=== PATIENT | male | born 1975 | race Caucasian/White ===

== ENCOUNTER 2016-07-12 14:21 | Outpatient (RCR) | payer OTHER ==
--- OUTSIDE RECORDS SUMMARY | 2016-05-29 13:45 | XMS REPORT | Continuity of Care Document ---
Author Author [facility] Organization [facility] Address Unknown Phone Unavailable Care Team Providers Care Student Worker Name Role Phone NO, LOCAL PHYSICIAN PCP Unavailable Advance Directives Directive Response Recorded Date/Time Advance Directives No 08/22/15 4:51pm Organ Donor Yes 08/22/15 4:51pm Problems Active Problems Medical Problem Onset Date Status Leukocytosis Unknown Acute Mild concussion Unknown Acute Mild concussion Unknown Acute Pain, abdominal, nonspecific Unknown Acute Periorbital contusion of left eye Unknown Acute Sprain and strain of foot Unknown Acute Medications Current Home Medications Medication Dose Units Route Directions Days/Qty Instructions Start Date Alprazolam 1 Mg 112 07/28/15 Methylphenidate Hcl 10 Mg 84 07/28/15 Tramadol Hcl 50 Mg 50 Mg Oral Every 4HRS as needed for Pain 14 Past Home Medications Medication Directions Ordered Status Methylprednisolone 4 Mg/Dose-Pack Tab.ds.pk, 1 Packet Oral As Directed Discontinued Oxycodone Hcl/Acetaminophen 1 Each Tablet, 1 - 2 Each Oral Every 6 Hours as needed 11/06/10 Discontinued Trimethoprim/Sulfamethoxazole 1 Ea Tablet, 1 Ea Oral Twice A Day 08/22/12 Discontinued Mupirocin 22 Gm Tube, 0 Topical Three Times A Day 08/22/12 Discontinued Clindamycin Hcl 300 Mg Capsule, 1 Each Oral Four Times Daily 08/22/12 Discontinued Methylprednisolone 4 Mg/Dose-Pack Tab.ds.pk, 0 Oral As Directed 08/22/12 Discontinued [Xanax] , 07/06/14 Discontinued [Ritalin] , 07/06/14 Discontinued Hyoscyamine Sulfate 0.125 Mg Tab.subl, 0.25 Mg Sublingual Every 6 Hours as needed for Cramps 07/28/15 Discontinued Hydrocodone/Acetaminophen 1 Each Tablet, 08/22/15 Discontinued Social History Social History Problem Response Recorded Date/Time Alcohol Use Regular Use 08/22/2015 4:51pm Recreational Drug Use No 08/22/2015 4:51pm Hospital Discharge Instructions No hospital discharge instructions. Plan of Care No plan of care. Functional Status No functional status results. Allergies, Adverse Reactions, Alerts Allergen Type Severity Reaction Status Last Updated methylprednisolone sod succ Allergy Intermediate Weakness, nausea, dyspnea Active 08/23/12 Immunizations No immunization records. Vital Signs No known vital signs results. Results No known relevant diagnostic tests, laboratory data and/or discharge summary. Procedures No known history of procedures.
[~2016-07-12 14:21] MED LIST: ALPR1TAB7; CLIN300C3 PO; HYDR-3812; HYOS0.1283 SL; METH-288; METH4TAB PO; MPR22T TP; OXYC-12 PO; RITALIN; SULF1TAB38 PO; TRAM50TA2 PO; XANAX
== END 2016-08-09 09:30 | disposition home or self-care (01) ==
PROVIDERS: ATTEND Orthopaedic Surgery
DX: Z48.89 Encounter for other specified surgical aftercare (principal)

== ENCOUNTER → 2016-07-19 | Outpatient (CLI) | payer BC ==
[~2016-07-19] VITALS: Ht 170.2 cm; Wt 98.4 kg
[~2016-07-19] MED LIST changes: +FAMO-119 PO; +GADOBUTROL 7.5 MMOL/7.5 ML (GADAVIST) VIAL IV ONE; +IOHEXOL 300 MG/ML 30 ML (OMNIPAQUE 300) VIAL IV ONE; +LIDOCAINE 1% INJ 20 ML (XYLOCAINE) VIAL INJ ONE; +LIDOCAINE 1% INJ 20 ML (XYLOCAINE) VIAL ONE; +SUCR1TAB36 PO
--- OUTSIDE RECORDS SUMMARY | 2016-07-19 11:26 | XMS REPORT | Continuity of Care Document ---
Author Author [facility] Organization [facility] Address Unknown Phone Unavailable Care Team Providers Care Sports Anchor Name Role Phone NO, LOCAL PHYSICIAN PCP [...]
[2016-07-19 11:36] VITALS: BP 138/90
[2016-07-19 11:57] VITALS: BP 132/88
--- NOTE | 2016-07-19 13:28 | Diagnostic Imaging Report ---
PROCEDURE: MRI left joint upper extremity with contrast. TECHNIQUE: Multiplanar, multisequence contrast-enhanced MRI of the left upper extremity was accomplished. INDICATION: Shoulder pain. FINDINGS: The previous MRI left shoulder exam performed on 12/30/14 was conducted without intra-articular contrast. That study failed to show any definite abnormality of the glenoid labrum. On the T1 coronal images of this exam, however, there is now a 3.5 x 15.1 mm linear area of diminished signal extending through the fluid in the joint space. This area of diminished signal is interposed between the inferior margin of the glenoid and the medial aspect of the humeral head. This may represent a portion of the labrum which has been avulsed and slightly displaced from the inferior glenoid. It will be less likely that this is secondary to a partial avulsion of the inferior glenohumeral ligament. The axial images also show a small linear area of increased signal extending to the anterior margin of the labrum (image 11 of 23). This finding is not well visualized on the coronal series but is still suspicious for a small tear of the anterior labrum. No other labral tear is identified. The previous study also noted slightly increased signal along the bursal aspect of the supraspinatus tendon. That finding is again evident on this exam and does not seem to have changed significantly. This finding may be related to mild fraying of the bursal aspect of the rotator cuff. The supraspinatus muscle itself is not retracted or bunched. There is mild hypertrophy of the acromioclavicular joint but there does not appear to be any significant narrowing of the outlet for the supraspinatus muscle. The biceps tendon and the subscapularis tendon are intact. There is no evidence for an acute bony abnormality. IMPRESSION: 1. In the interval since the previous study, a band of altered signal has developed between the inferior margin of the glenoid and the medial neck of the humerus. Whether this is secondary to an avulsed portion of the labrum or to an injury to the inferior glenohumeral ligament is not certain. There is also a question of a small tear involving the anterior labrum. 2. There is still no evidence for a tear of the rotator cuff and the supraspinatus muscle is not retracted or bunched. 3. There is mild hypertrophy of the acromioclavicular joint but there is no narrowing of the outlet for the supraspinatus muscle. 4. There is no sign of an acute bony abnormality. Dictated by: Dictated on workstation # [id number]
--- NOTE | 2016-07-19 18:38 | Diagnostic Imaging Report ---
Left shoulder injection for MRI. INDICATION: Shoulder pain. Following aseptic preparation of skin and administration of local anesthesia, a 19-gauge needle was advanced into the glenohumeral space using fluoroscopic guidance. Approximately 15 cc of a sodium chloride, Omnipaque 300 and Gadavist solution was introduced. The patient tolerated the procedure well and was sent to the MRI suite in good condition. IMPRESSION: There has been successful injection of the glenohumeral joint on the left. MRI pending for further study. Dictated by: Dictated on workstation # [id number]
== END ==
LOC: RAD 11:23
PROVIDERS: ATTEND Orthopaedic Surgery
DX: S43.432A Superior glenoid labrum lesion of left shoulder, initial encounter (principal)
CPT/HCPCS: 23350; 73040; 73222

== ENCOUNTER 2016-08-14 17:40 | Emergency (ER) | payer BC, OTHER ==
[~2016-08-14] VITALS: Ht 167.6 cm; Wt 99.8 kg
[~2016-08-14 17:40] MED LIST changes: -FAMO-119 PO; -GADOBUTROL 7.5 MMOL/7.5 ML (GADAVIST) VIAL IV ONE; -IOHEXOL 300 MG/ML 30 ML (OMNIPAQUE 300) VIAL IV ONE; -LIDOCAINE 1% INJ 20 ML (XYLOCAINE) VIAL INJ ONE; -LIDOCAINE 1% INJ 20 ML (XYLOCAINE) VIAL ONE; -SUCR1TAB36 PO
[2016-08-14 18:09] LABS: BILIRUBIN,URINE NEGATIVE (NEGATIVE); KETONES,URINE NEGATIVE (NEGATIVE); LEUKOCYTE ESTERASE ,URINE 1+ (NEGATIVE); NITRITE,URINE NEGATIVE (NEGATIVE); PH,URINE 6 (5-9); PROTEIN,URINE NEGATIVE (NEGATIVE); UROBILINOGEN,URINE NORMAL (NORMAL)
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
[2016-08-14] MEDS ORDERED: ONDANSETRON 4 MG/2 ML (SDV) Z0FRAN IVP ONE (18:15)
[2016-08-14] MEDS ORDERED: fentaNYL INJECTION 100 MCG/2 ML AMP IVP ONE (18:15)
[2016-08-14] MEDS ORDERED: NS IV 1000 ML 1,000 ML IV SCH (18:15)
[2016-08-14 18:16] LABS: SQUAMOUS EPITHELIAL CELL,UR RARE /HPF; WBC,URINE 0-2 /HPF
[2016-08-14 18:28] LABS: BASOPHILS % (AUTO) 0 % (0-10); EOSINOPHILS # (AUTO) 0.2 10^3/uL (0.0-0.3); EOSINOPHILS % (AUTO) 1 % (0-10); LYMPHOCYTES # (AUTO) 4.4 X 10^3 (1.0-4.0); LYMPHOCYTES % (AUTO) 35 % (12-44); MEAN CORPUSCULAR HEMOGLOBIN 29 PG (25-34); MEAN CORPUSCULAR HGB CONC 35 G/DL (32-36); MEAN CORPUSCULAR VOLUME 84 FL (80-99); MEAN PLATELET VOLUME 9.5 FL (7.4-10.4); MONOCYTES # (AUTO) 0.9 X 10^3 (0.0-1.0); MONOCYTES % (AUTO) 7 % (0-12); NEUTROPHILS # (AUTO) 7.3 X 10^3 (1.8-7.8); NEUTROPHILS % (AUTO) 57 % (42-75); PLATELET COUNT 278 10^3/uL (130-400); RED BLOOD COUNT 5.19 10^6/uL (4.35-5.85); RED CELL DISTRIBUTION WIDTH 13.5 % (10.0-14.5); WHITE BLOOD COUNT 12.7 10^3/uL (4.3-11.0)
[2016-08-14] MEDS ORDERED: NS 100 ML (IVPB) BAG IV ONE (18:30)
[2016-08-14] MEDS ORDERED: IOHEXOL 350 MG/ML 100 ML (OMNIPAQUE 350) VIAL IV ONE (18:30)
[2016-08-14 18:50] LABS: ALANINE AMINOTRANSFERASE 24 U/L (0-55); ALBUMIN 4.2 G/DL (3.2-4.5); ANION GAP 10 MMOL/L (5-14); ASPARTATE AMINO TRANSFERASE 20 U/L (5-34); BILIRUBIN,TOTAL 0.6 MG/DL (0.1-1.0); BLOOD UREA NITROGEN 12 MG/DL (7-18); BUN/CREATININE RATIO 10; CALCIUM 8.8 MG/DL (8.5-10.1); CARBON DIOXIDE 22 MMOL/L (21-32); CHLORIDE 109 MMOL/L (98-107); CREATININE SERUM 1.18 MG/DL (0.60-1.30); GFR ESTIMATED > 60; GLUCOSE 94 MG/DL (70-105); LIPASE 35 U/L (8-78); POTASSIUM 3.9 MMOL/L (3.6-5.0); SODIUM 141 MMOL/L (135-145); TOTAL PROTEIN 6.8 G/DL (6.4-8.2)
--- NOTE | 2016-08-14 19:07 | Diagnostic Imaging Report ---
PROCEDURE: CT abdomen and pelvis with contrast. TECHNIQUE: Multiple contiguous axial images were obtained through the abdomen and pelvis after administration of intravenous contrast. INDICATION: Abdominal pain, nausea, and vomiting, worsening in severity. Compared 07/28/2015. FINDINGS: Hyperenhancing nodule seen in the dynamic phase posterior sector right hepatic lobe inferiorly unchanged from prior, likely flash filling of hemangioma to 11 mm. The liver appeared otherwise normal. There is no biliary ductal dilatation. The gallbladder appeared normal. The spleen within normal limits of size. A subtle nodule along its lateral cortex superiorly slightly bulging the contour at 1.7 cm unchanged. The adrenals negative. The pancreas unremarkable. There is no appendicitis or diverticulitis. There is no bowel, biliary or urinary tract obstruction. The prostate, seminal vesicles, and urinary bladder unremarkable. There is no ascites, abscess, hematoma or other fluid collection. There is no focal inflammatory process. The osseous structures in the lung bases nonacute. IMPRESSION: Likely flash filling hemangioma, right hepatic lobe stable. Indeterminate mass spleen upper pole laterally probably splenic hemangioma also unchanged. No new lesion or adverse development. No inflammatory process, obstructive phenomena or acute appearing abdominopelvic abnormalities. Dictated by: Dictated on workstation # [id number]
[2016-08-14] MEDS ORDERED: SUCR1TAB36 PO (19:21)
[2016-08-14] MEDS ORDERED: FAMO-119 PO (19:21)
[2016-08-14 19:28] VITALS: BP 128/85
[2016-08-14] MEDS ORDERED: FAMOTIDINE 20 MG (PEPCID) TABLET PO ONE (19:30)
--- OUTSIDE RECORDS SUMMARY | 2016-09-17 06:37 | XMS REPORT ---
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
--- OUTSIDE RECORDS SUMMARY | 2016-09-17 06:37 | XMS REPORT ---
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
--- OUTSIDE RECORDS SUMMARY | 2016-09-17 06:37 | XMS REPORT ---
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
--- OUTSIDE RECORDS SUMMARY | 2016-09-17 06:37 | XMS REPORT ---
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 Problem Posttraumatic stress disorder F43.10 Active Assessment Posttraumatic stress disorder F43.10 Active Medications Medication Code System Code Instructions Start Date End Date Status Dosage Zantac 150 Maximum Strength [facility] [address]-64 150 MG Orally Twice a day September 06, 2015 1 tablet Procedures Procedure Coding System Code Date Office Visit, Est Pt., Level 2 CPT-4 29862 Feb 09, 2016 Vital Signs Date/Time: Feb 09, 2016 Cardiac Monitoring Heart Rate 12 bpm Weight 223 lbs Height 67 in BMI 34.92 Index Blood Pressure Diastolic 70 mmHg Blood Pressure Systolic 128 mmHg Results No Known Results Summary Purpose [employer] Submission
--- OUTSIDE RECORDS SUMMARY | 2016-09-17 06:37 | XMS REPORT ---
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 Medications Medication Code System Code Instructions Start Date End Date Status Dosage Trazodone HCl [facility] [address]-24 150 MG Orally Once a day Mar 16, 2015 1 tablet at bedtime as needed Ritalin [facility] [address]-40 10 MG Orally 3 times a day for ADHD Ranjit to sign for [place] July 17, 2014 1 tablet Xanax [facility] [address]-24 0.5 MG Orally Four times a day PRN anxiety July 1 tablet Hydrocodone-Acetaminophen [facility] [address]-84 5-325 MG Orally every 6 hrs Mar 17, 2015 1 tablet as needed Venlafaxine HCl [facility] [address]-07 75 MG Orally Twice a day November 27, 2014 1 tablet with food Procedures Procedure Coding System Code Date Office Visit, Est Pt., Level 3 CPT-4 08608 Mar 16, 2015 Vital Signs Date/Time: Mar 16, 2015 Cardiac Monitoring Heart Rate 66 bpm Weight 221.9 lbs Height 68 in BMI 33.74 Index Blood Pressure Diastolic 78 mmHg Blood Pressure Systolic 106 mmHg Results No Known Results Summary Purpose [employer] Submission
--- OUTSIDE RECORDS SUMMARY | 2016-09-17 06:37 | XMS REPORT ---
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
--- OUTSIDE RECORDS SUMMARY | 2016-09-17 06:37 | XMS REPORT ---
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 Problem Posttraumatic stress disorder F43.10 Active Problem Shoulder pain, bilateral M25.511 Active Assessment Post-traumatic stress disorder, unspecified F43.10 Active Assessment Attention-deficit hyperactivity disorder, unspecified type F90.9 Active Medications Medication Code System Code Instructions Start Date End Date Status Dosage Venlafaxine HCl [facility] [address]-95 75 MG Orally Twice a day November 27, 2014 1 tablet with food Ritalin [facility] [address]-90 10 MG Orally 3 times a day for ADHD Ranjit to sign for [place] July 17, 2014 [address] [facility] [address]-04 150 MG Orally Once a day Mar 16, 2015 1 tablet at bedtime as needed Xanax [facility] [address]-30 1 MG Orally Four times a day PRN anxiety August 05, 2014 1 tablet Hydrocodone-Acetaminophen [facility] [address]-61 5-325 MG Orally every 6 hrs as needed for pain. MUST LAST 30 DAYS Mar 22, 2015 1 tablet Hydrocodone-Acetaminophen [facility] [address]-98 5-500 MG Orally every 6 hrs 1 capsule as needed Procedures Procedure Coding System Code Date Office Visit, Est Pt., Level 4 CPT-4 77703 Apr 16, 2015 Vital Signs Date/Time: Apr 16, 2015 Cardiac Monitoring Heart Rate 64 bpm Weight 222.3 lbs Height 68 in BMI 33.80 Index Blood Pressure Diastolic 86 mmHg Blood Pressure Systolic 120 mmHg Results No Known Results Summary Purpose [employer] Submission
--- OUTSIDE RECORDS SUMMARY | 2016-09-17 06:37 | XMS REPORT ---
Author Author SHANA ROTH [employer] Address Unknown Phone Unavailable Care Team Providers Care Biofuels Research Scientist Name Role Phone SHANA ROTH CP Unavailable Allergies No Known Allergies Problems Problem Type Condition ICD-9 Code Onset Dates Condition Status Problem Shoulder pain, bilateral 719.41 Active Problem Posttraumatic stress disorder 309.81 Active Problem Upper respiratory infection 465.9 Active Assessment Posttraumatic stress disorder 309.81 Active Assessment Attention deficit disorder of childhood without mention of hyperactivity 314.00 Active Problem Attention deficit disorder of childhood without mention of hyperactivity 314.00 Active Problem Cellulitis and abscess of face 682.0 Active Medications No Known Medications Procedures Procedure Coding System Code Date Psychotherapy, patient &/family, 45 minutes, established patient CPT-4 76366 Feb 02, 2015 Results No Known Results Summary Purpose [employer] Submission
--- OUTSIDE RECORDS SUMMARY | 2016-09-17 06:37 | XMS REPORT ---
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
--- OUTSIDE RECORDS SUMMARY | 2016-09-17 06:37 | XMS REPORT ---
Author Author BRITTANY CLEMENTS [facility] eClinicalWorks Address Unknown Phone Unavailable Care Team Providers Care Deaf Interpreter Name Role Phone BRITTANY CLEMENTS CP Unavailable Allergies No Known Allergies Problems Problem Type Condition ICD-9 Code Onset Dates Condition Status Problem Shoulder pain, bilateral 719.41 Active Problem Posttraumatic stress disorder 309.81 Active Problem Upper respiratory infection 465.9 Active Problem Attention deficit disorder of childhood without mention of hyperactivity 314.00 Active Problem Cellulitis and abscess of face 682.0 Active Medications No Known Medications Results No Known Results Summary Purpose eClinicalWorks Submission
--- OUTSIDE RECORDS SUMMARY | 2016-09-17 06:37 | XMS REPORT ---
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
--- OUTSIDE RECORDS SUMMARY | 2016-09-17 06:37 | XMS REPORT ---
Author Author SANGEETHA MIKE Organization eClinicalWorks Address Unknown Phone Unavailable Care Team Providers Care Meter Reader Name Role Phone SANGEETHA MIKE Unavailable Allergies No Known Allergies Problems Problem Type Condition ICD-9 Code Onset Dates Condition Status Problem Shoulder pain, bilateral 719.41 Active Problem Posttraumatic stress disorder 309.81 Active Problem Upper respiratory infection 465.9 Active Problem Attention deficit disorder of childhood without mention of hyperactivity 314.00 Active Problem Cellulitis and abscess of face 682.0 Active Medications Medication Code System Code Instructions Start Date End Date Status Dosage Xanax [facility] [address]-29 0.5 MG Orally Four times a day PRN anxiety July 1 tablet Results No Known Results Summary Purpose eClinicalWorks Submission
--- OUTSIDE RECORDS SUMMARY | 2016-09-17 06:37 | XMS REPORT ---
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
--- OUTSIDE RECORDS SUMMARY | 2016-09-17 06:37 | XMS REPORT ---
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
--- OUTSIDE RECORDS SUMMARY | 2016-09-17 06:38 | XMS REPORT ---
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
--- OUTSIDE RECORDS SUMMARY | 2016-09-17 06:38 | XMS REPORT ---
Author Author SANGEETHA MIKE Organization eClinicalWorks Address Unknown Phone Unavailable Care Team Providers Care Senior Patient Account Representative Name Role Phone SANGEETHA MIKE Unavailable Allergies [...] Start Date End Date Status Dosage Ritalin [facility] [address]-46 10 MG Orally 3 times a day for ADHD Ranjit to sign for Jameson July 17, 2014 1 tablet Results No Known Results Summary Purpose eClinicalWorks Submission
--- OUTSIDE RECORDS SUMMARY | 2016-09-17 06:38 | XMS REPORT ---
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 Problem Posttraumatic stress disorder F43.10 Active Problem Shoulder pain, bilateral M25.511 Active Assessment Shoulder pain, bilateral M25.511 Active Medications Medication Code System Code Instructions Start Date End Date Status Dosage Xanax [facility] [address]-10 0.5 MG Orally Four times a day PRN anxiety July 1 tablet Hydrocodone-Acetaminophen [facility] [address]-29 5-500 MG Orally every 6 hrs 1 capsule as needed Trazodone HCl [facility] [address]-30 150 MG Orally Once a day Mar 16, 2015 1 tablet at bedtime as needed Ritalin [facility] [address]-55 10 MG Orally 3 times a day for ADHD Ranjit to sign for Jameson July 17, 2014 1 tablet Procedures Procedure Coding System Code Date Office Visit, Est Pt., Level 3 CPT-4 23698 Mar 22, 2015 Vital Signs Date/Time: Mar 22, 2015 Temperature 98.2 F Weight 226.3 lbs Height 68 in BMI 34.41 Index Blood Pressure Diastolic 70 mmHg Blood Pressure Systolic 122 mmHg Cardiac Monitoring Heart Rate 64 bpm Results No Known Results Summary Purpose eClinicalWorks Submission
--- OUTSIDE RECORDS SUMMARY | 2016-09-17 06:38 | XMS REPORT ---
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
--- OUTSIDE RECORDS SUMMARY | 2016-09-17 06:38 | XMS REPORT ---
Author BRITTANY Augustine [facility] eClinicalWorks Address Unknown Phone Unavailable Care Team Providers Care Siebel Administrator Name Role Phone BRITTANY CLEMENTS CP Unavailable [...] Date End Date Status Dosage Trazodone HCl [facility] [place] [facility] [address]-20 150 MG Orally Once a day Mar 16, 2015 1 tablet at bedtime as needed Hydrocodone-Acetaminophen [facility] [place] [facility] [address]-90 5-325 MG Orally every 6 hrs. MUST LAST 28 DAYS. Apr 22, 2015 May 20, 2015 1 tablet as needed Ritalin [facility] [place] [address]-60 10 MG Orally 3 times a day for ADHD Ranjit to sign for Jameson July 17, 2014 1 tablet Xanax [facility] [place] [address]-27 1 MG Orally Four times a day PRN anxiety August 05, 2014 1 tablet Procedures Procedure Coding System Code Date Office Visit, Est Pt., Level 3 CPT-4 65370 May 11, 2015 Vital Signs Date/Time: May 11, 2015 Temperature 98.0 F Weight 219.0 lbs Height 68 in BMI 33.30 Index Blood Pressure Diastolic 82 mmHg Blood Pressure Systolic 138 mmHg Cardiac Monitoring Heart Rate 70 bpm Results No Known Results Summary Purpose eClinicalWorks Submission
--- OUTSIDE RECORDS SUMMARY | 2016-09-17 06:38 | XMS REPORT ---
Author Author BRITTANY CLEMENTS [facility] eClinicalWorks Address Unknown Phone Unavailable Care Team Providers Care Emergency Planning And Response Manager Name Role Phone BRITTANY CLEMENTS CP Unavailable Allergies, Adverse Reactions, Alerts Substance Reaction Event Type Solu-Medrol anaphylaxis Drug Allergy PredniSONE muscle atrophy Drug Allergy Penicillin V Potassium hives Drug Allergy Problems Problem Type Condition ICD-9 Code Onset Dates Condition Status Problem Shoulder pain, bilateral 719.41 Active Problem Posttraumatic stress disorder 309.81 Active Problem Upper respiratory infection 465.9 Active Assessment Shoulder pain, bilateral 719.41 Active Assessment Folliculitis 704.8 Active Problem Attention deficit disorder of childhood without mention of hyperactivity 314.00 Active Problem Cellulitis and abscess of face 682.0 Active Medications Medication Code System Code Instructions Start Date End Date Status Dosage Venlafaxine HCl [facility] [address]-54 75 MG Orally Twice a day November 27, 2014 1 tablet with food Ritalin [facility] [address]-30 10 MG Orally 3 times a day for ADHD July 17, 2014 1 tablet Bactrim DS [facility] [address]-47 800-160 MG Orally 2 times a day Jan 15, 2015 Jan 25, 2015 1 tablet Hydrocodone-Acetaminophen [facility] [address]-71 5-325 MG Orally 3 times a day Jan 15, 2015 Feb 14, 2015 1 tablet as needed Xanax [facility] [address]-71 0.5 MG Orally Four times a day PRN anxiety July 1 tablet Procedures Procedure Coding System Code Date Office Visit, Est Pt., Level 3 CPT-4 03772 Jan 15, 2015 Vital Signs Date/Time: Jan 15, 2015 Temperature 98.4 F Weight 220.8 lbs Height 68 in BMI 33.57 Index Blood Pressure Diastolic 80 mmHg Blood Pressure Systolic 128 mmHg Cardiac Monitoring Heart Rate 80 bpm Results No Known Results Summary Purpose eClinicalWorks Submission
--- OUTSIDE RECORDS SUMMARY | 2016-09-17 06:38 | XMS REPORT ---
Author Author SHANA ROTH eClinicalWorks Address Unknown Phone Unavailable Care Team Providers Care Renewals Manager Name Role Phone SHANA ROTH CP Unavailable [...] patient &/family, 45 minutes, established patient CPT-4 34667 September 01, 2015 Results No Known Results Summary Purpose eClinicalWorks Submission
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
--- OUTSIDE RECORDS SUMMARY | 2016-09-17 06:38 | XMS REPORT ---
Author Author SANGEETHA MIKE Organization [employer] Address Unknown Phone Unavailable Care Team Providers Care Deicer Tester Name Role Phone SANGEETHA MIKE Unavailable Allergies No Known Allergies Problems Problem Type Condition Code Onset Dates Condition Status Problem Attention deficit disorder without hyperactivity F90.0 Active Problem Posttraumatic stress disorder F43.10 Active Problem Shoulder pain, bilateral M25.511 Active Medications Medication Code System Code Instructions Start Date End Date Status Dosage Ritalin [facility] [address]-57 10 MG Orally 3 times a day for ADHD Ranjit to sign for Jameson July 17, 2014 1 tablet Results No Known Results Summary Purpose [employer] Submission
--- OUTSIDE RECORDS SUMMARY | 2016-09-17 06:38 | XMS REPORT ---
Author Author JONELLE FROST Organization [employer] Address Unknown Phone Unavailable Care Team Providers Care Supervisor Pyrotechnic Loading Name Role Phone JONELLE FROST CP Unavailable Allergies No Known Allergies Problems Problem Type Condition Code Onset Dates Condition Status Problem Attention deficit disorder without hyperactivity F90.0 Active Problem Posttraumatic stress disorder F43.10 Active Problem Shoulder pain, bilateral M25.511 Active Assessment Shoulder pain, bilateral M25.511 Active Medications Medication Code System Code Instructions Start Date End Date Status Dosage Hydrocodone-Acetaminophen [facility] [address]-46 5-325 MG Orally every 6 hrs. MUST LAST 28 DAYS. Apr 22, 2015 May 20, 2015 1 tablet as needed Results No Known Results Summary Purpose [employer] Submission
--- OUTSIDE RECORDS SUMMARY | 2016-09-17 06:38 | XMS REPORT ---
Author BRITTANY [facility] [employer] Address Unknown Phone Unavailable Care Team Providers Care Marketing Research Intern Name Role Phone BRITTANY CLEMENTS CP Unavailable Allergies, Adverse Reactions, Alerts Substance Reaction Event Type Solu-Medrol anaphylaxis Drug Allergy PredniSONE muscle atrophy Drug Allergy Penicillin V Potassium hives Drug Allergy Problems Problem Type Condition Code Onset Dates Condition Status Problem Attention deficit disorder without hyperactivity F90.0 Active Problem Posttraumatic stress disorder F43.10 Active Problem Shoulder pain, bilateral M25.511 Active Assessment Attention deficit disorder without hyperactivity F90.0 Active Assessment Posttraumatic stress disorder F43.10 Active Problem Attention deficit disorder of childhood without mention of hyperactivity 314.00 Active Assessment Shoulder pain, bilateral M25.511 Active Medications Medication Code System Code Instructions Start Date End Date Status Dosage Ritalin [facility] [address]-53 10 MG Orally 3 times a day for ADHD Ranjit to sign for Jameson July 17, 2014 1 tablet Xanax [facility] [address]-36 0.5 MG Orally Four times a day PRN anxiety July 1 tablet Hydrocodone-Acetaminophen [facility] [address]-09 5-325 MG Orally every 6 hrs Mar 17, 2015 1 tablet as needed Venlafaxine HCl [facility] [address]-46 75 MG Orally Twice a day November 27, 2014 1 tablet with food Procedures Procedure Coding System Code Date Office Visit, Est Pt., Level 3 CPT-4 81611 Feb 15, 2015 Vital Signs Date/Time: Feb 15, 2015 Temperature 97.8 F Weight 223.6 lbs Height 68 in BMI 33.99 Index Blood Pressure Diastolic 86 mmHg Blood Pressure Systolic 132 mmHg Cardiac Monitoring Heart Rate 80 bpm Results No Known Results Summary Purpose [employer]Works Submission
--- OUTSIDE RECORDS SUMMARY | 2016-09-17 06:38 | XMS REPORT ---
Author SHANA Vance [facility] [employer] Address Unknown Phone Unavailable Care Team Providers Care Sound Designer Name Role Phone SHANA ROTH CP Unavailable [...] patient &/family, 45 minutes, established patient CPT-4 99558 Feb 09, 2016 Results No Known Results Summary Purpose [employer] Submission
--- OUTSIDE RECORDS SUMMARY | 2016-09-17 06:38 | XMS REPORT ---
Author Author MANDEEP DA SILVA [facility] [employer] Address Unknown Phone Unavailable Care Team Providers Care Room Service Food Service Attendant Name Role Phone MANDEEP DA SILVA CP Unavailable Allergies No Known Allergies Problems Problem Type Condition Code Onset Dates Condition Status Problem Shoulder pain, bilateral M25.511 Active Problem Attention deficit disorder without hyperactivity F90.0 Active Problem Insomnia G47.00 Active Problem Posttraumatic stress disorder F43.10 Active Medications Medication Code System Code Instructions Start Date End Date Status Dosage Xanax [facility] [place] [address]-98 1 MG Orally Four times a day PRN anxiety August 05, 2014 1 tablet Results No Known Results Summary Purpose [employer] Submission
--- OUTSIDE RECORDS SUMMARY | 2016-09-17 06:39 | XMS REPORT ---
Author SHANA Vance [facility] [employer] Address Unknown Phone Unavailable Care Team Providers Care Monogram Machine Operator Name Role Phone SHANA ROTH CP Unavailable [...] patient &/family, 45 minutes, established patient CPT-4 21363 Mar 08, 2016 Results No Known Results Summary Purpose [employer] Submission
--- OUTSIDE RECORDS SUMMARY | 2016-09-17 06:39 | XMS REPORT ---
Author Author RIGO SMITH Organization [employer] Address Unknown Phone Unavailable Care Team Providers Care Compliance Specialist Name Role Phone RIGO SMITH Unavailable Allergies No Known Allergies Problems Problem Type Condition Code Onset Dates Condition Status Problem Attention deficit disorder without hyperactivity F90.0 Active Problem Posttraumatic stress disorder F43.10 Active Problem Shoulder pain, bilateral M25.511 Active Medications Medication Code System Code Instructions Start Date End Date Status Dosage Xanax [facility] [address]-45 1 MG Orally Four times a day PRN anxiety August 05, 2014 1 tablet Results No Known Results Summary Purpose [employer] Submission
--- OUTSIDE RECORDS SUMMARY | 2016-09-17 06:39 | XMS REPORT ---
Author Author MANDEEP DA SILVA [facility] [employer] Address Unknown Phone Unavailable Care Team Providers Care Negative Assembler Name Role Phone MANDEEP DA SILVA CP Unavailable Allergies No Known Allergies Problems Problem Type Condition Code Onset Dates Condition Status Problem Shoulder pain, bilateral M25.511 Active Problem Attention deficit disorder without hyperactivity F90.0 Active Problem Insomnia G47.00 Active Problem Posttraumatic stress disorder F43.10 Active Medications Medication Code System Code Instructions Start Date End Date Status Dosage Ritalin [facility] [address]-66 10 MG Orally 3 times a day for ADHD July 17, 2014 1 tablet Results No Known Results Summary Purpose [employer]Works Submission
--- OUTSIDE RECORDS SUMMARY | 2016-09-17 06:39 | XMS REPORT ---
Author BRYAN Huynh Organization [employer] Address Unknown Phone Unavailable Care Team Providers Care Power Shovel Operator Helper Name Role Phone BRYAN MOORE CP Unavailable Allergies, Adverse Reactions, Alerts Substance Reaction Event Type Solu-Medrol anaphylaxis Drug Allergy PredniSONE muscle atrophy Drug Allergy Penicillin V Potassium hives Drug Allergy Problems Problem Type Condition Code Onset Dates Condition Status Problem Shoulder pain, bilateral M25.511 Active Problem Attention deficit disorder without hyperactivity F90.0 Active Problem Insomnia G47.00 Active Assessment Posttraumatic stress disorder F43.10 Active Assessment Insomnia G47.00 Active Problem Posttraumatic stress disorder F43.10 Active Assessment Shoulder pain, bilateral M25.511 Active Medications Medication Code System Code Instructions Start Date End Date Status Dosage Xanax [facility] [address]-49 1 MG Orally Four times a day PRN anxiety August 05, 2014 1 tablet Hydrocodone-Acetaminophen [facility] [address]-92 5-325 MG Orally every 6 hrs. MUST LAST 28 DAYS. Apr 22, 2015 Jun 17, 2015 1 tablet as needed Ritalin [facility] [address]-77 10 MG Orally 3 times a day for ADHD Ranjit to sign for Jameson July 17, 2014 1 tablet Trazodone HCl [facility] [address]-09 150 MG Orally Once a day Mar 16, 2015 1 tablet at bedtime as needed Procedures Procedure Coding System Code Date Office Visit, Est Pt., Level 4 CPT-4 84879 May 28, 2015 Vital Signs Date/Time: May 28, 2015 Temperature 98.9 F Weight 216 lbs Height 68 in BMI 32.84 Index Blood Pressure Diastolic 86 mmHg Blood Pressure Systolic 130 mmHg Cardiac Monitoring Heart Rate 60 bpm Results No Known Results Summary Purpose [employer]ClinicalWorks Submission
--- OUTSIDE RECORDS SUMMARY | 2016-09-17 06:39 | XMS REPORT ---
Author Author SANGEETHA MIKE Organization [employer] Address Unknown Phone Unavailable Care Team Providers Care Envelope Machine Adjuster Name Role Phone SANGEETHA MIKE Unavailable Allergies No Known Allergies Problems Problem Type Condition Code Onset Dates Condition Status Problem Attention deficit disorder without hyperactivity F90.0 Active Problem Posttraumatic stress disorder F43.10 Active Problem Shoulder pain, bilateral M25.511 Active Medications Medication Code System Code Instructions Start Date End Date Status Dosage Ritalin [facility] [address]-39 10 MG Orally 3 times a day for ADHD Ranjit to sign for Jameson July 17, 2014 1 tablet Results No Known Results Summary Purpose [employer] Submission
--- OUTSIDE RECORDS SUMMARY | 2016-09-17 06:39 | XMS REPORT ---
Author THERESA Rosas Organization [employer] Address Unknown Phone Unavailable Care Team Providers Care Transmitter Operator Name Role Phone THERESA MORE Unavailable Allergies No Known Allergies Problems Problem Type Condition Code Onset Dates Condition Status Problem Shoulder pain, bilateral M25.511 Active Problem Attention deficit disorder without hyperactivity F90.0 Active Problem Insomnia G47.00 Active Problem Posttraumatic stress disorder F43.10 Active Medications Medication Code System Code Instructions Start Date End Date Status Dosage Ritalin [facility] [address]-12 10 mg Orally TAKE ONE TABLET BY MOUTH THREE TIMES DAILY FOR ADHD Results No Known Results Summary Purpose [employer] Submission
--- OUTSIDE RECORDS SUMMARY | 2016-09-17 06:39 | XMS REPORT ---
Author Author NAYAN ROSE [facility] [employer] Address Unknown Phone Unavailable Care Team Providers Care Wire Products Inspector Name Role Phone NAYAN ROSE CP Unavailable Allergies No Known Allergies Problems Problem Type Condition ICD-9 Code Onset Dates Condition Status Problem Shoulder pain, bilateral 719.41 Active Problem Posttraumatic stress disorder 309.81 Active Problem Upper respiratory infection 465.9 Active Assessment Rotator cuff syndrome of left shoulder 726.10 Active Assessment Labral tear of shoulder 840.8 Active Problem Attention deficit disorder of childhood without mention of hyperactivity 314.00 Active Problem Cellulitis and abscess of face 682.0 Active Medications No Known Medications Procedures Procedure Coding System Code Date Office Visit, Est Pt., Level 2 CPT-4 54911 Dec 24, 2014 Vital Signs Date/Time: Dec 24, 2014 Blood Pressure Diastolic 82 mmHg Blood Pressure Systolic 136 mmHg Height 68 in Results Name Result Date Reference Range Unit Abnormality Flag MRI : Shoulder, Right Summary Purpose [employer] Submission
--- OUTSIDE RECORDS SUMMARY | 2016-09-17 06:39 | XMS REPORT ---
Author Author BRYAN MOORE [facility] [employer] Address Unknown Phone Unavailable Care Team Providers Care Manager Quality Name Role Phone BRYAN MOORE CP Unavailable Allergies, Adverse Reactions, Alerts Substance Reaction Event Type Solu-Medrol anaphylaxis Drug Allergy PredniSONE muscle atrophy Drug Allergy Penicillin V Potassium hives Drug Allergy Problems Problem Type Condition Code Onset Dates Condition Status Problem Shoulder pain, bilateral M25.511 Active Problem Attention deficit disorder without hyperactivity F90.0 Active Problem Insomnia G47.00 Active Assessment Elevated white blood cell count D72.829 Active Problem Posttraumatic stress disorder F43.10 Active Assessment Contact dermatitis L25.9 Active Medications Medication Code System Code Instructions Start Date End Date Status Dosage Vistaril [facility] [address]-29 25 MG Orally every 8 hrs September 06, 2015 1 capsule as needed Ritalin [facility] [address]-36 10 MG -Lyndsey to sign for Brandon LULA: [id number] TAKE ONE TABLET BY MOUTH THREE TIMES DAILY FOR ADHD Trazodone HCl [facility] [address]-53 150 MG Orally Once a day Mar 16, 2015 1 tablet at bedtime as needed Xanax [facility] [address]-69 1 MG Orally Four times a day PRN anxiety August 05, 2014 1 tablet Lortab 5 NDC 0 500-5 MG Orally every 6 hrs 1 tablet as needed Zantac 150 Maximum Strength [facility] [address]-15 150 MG Orally Twice a day September 06, 2015 1 tablet Procedures Procedure Coding System Code Date Office Visit, Est Pt., Level 4 CPT-4 21772 September 06, 2015 VENIPUNCT, ROUTINE* CPT-4 89855 September 06, 2015 COMPLETE CBC W/AUTO DIFF WBC CPT-4 71037 September 06, 2015 Vital Signs Date/Time: September 06, 2015 Temperature 98.0 F Weight 226 lbs Height 67 in BMI 35.39 Index Blood Pressure Diastolic 88 mmHg Blood Pressure Systolic 128 mmHg Cardiac Monitoring Heart Rate 80 bpm Results Name Result Date Reference Range Unit Abnormality Flag ROUTINE VENIPUNCTURE CBC ----MCHC 33.4 [id number] 31.5-35.7 g/dL ----MCH 28.8 [id number] 26.6-33.0 pg ----Platelets 341 [id number] 150-379 x10E3/uL ----RDW 13.7 [id number] 12.3-15.4 % ----Immature Granulocytes 0 37841432 % ----Immature Grans (Abs) 0.0 [id number] 0.0-0.1 x10E3/uL ----Lymphs 40 42596653 % ----Monocytes 6 06149267 % ----Neutrophils 52 54490355 % ----Neutrophils (Absolute) 5.7 [id number] 1.4-7.0 x10E3/uL ----Hematocrit 45.2 27388795 37.5-51.0 % ----Lymphs (Absolute) 4.5 [id number] 0.7-3.1 x10E3/uL H ----MCV 86 32521268 79-97 fL ----RBC 5.24 [id number] 4.14-5.80 x10E6/uL ----Eos 2 89009535 % ----Basos 0 70183133 % ----Hemoglobin 15.1 31845648 12.6-17.7 g/dL ----Baso (Absolute) 0.0 52699367 0.0-0.2 x10E3/uL ----WBC 11.2 [id number] 3.4-10.8 x10E3/uL H ----Monocytes(Absolute) 0.6 [id number] 0.1-0.9 x10E3/uL ----Eos (Absolute) 0.2 [id number] 0.0-0.4 x10E3/uL Summary Purpose eClinicalWorks Submission
--- OUTSIDE RECORDS SUMMARY | 2016-09-17 06:39 | XMS REPORT ---
Author Author BRYAN MOORE Organization [employer] Address Unknown Phone Unavailable Care Team Providers Care Freight Car Cleaner Name Role Phone BRYAN MOORE CP Unavailable Allergies No Known Allergies Problems Problem Type Condition Code Onset Dates Condition Status Problem Attention deficit disorder without hyperactivity F90.0 Active Problem Posttraumatic stress disorder F43.10 Active Problem Shoulder pain, bilateral M25.511 Active Assessment Shoulder pain, bilateral M25.511 Active Medications Medication Code System Code Instructions Start Date End Date Status Dosage Hydrocodone-Acetaminophen [facility] [address]-48 5-325 MG Orally every 6 hrs. MUST LAST 28 DAYS. Apr 22, 2015 Jun 17, 2015 1 tablet as needed Results No Known Results Summary Purpose eClinicalWorks Submission
== END 2016-08-14 19:24 | disposition home or self-care (01) ==
LOC: EDUNIT# 17:40 → ER 17:42
DX: R10.13 Epigastric pain (principal); R16.1 Splenomegaly, not elsewhere classified; F17.210 Nicotine dependence, cigarettes, uncomplicated
CPT/HCPCS: 36415; 74177; 80053; 81000; 83690; 85025; 96361; 96374; 96375

== ENCOUNTER 2016-09-28 05:37 | Outpatient (CLI) | payer BC ==
[~2016-09-28] VITALS: Ht 167.6 cm; Wt 99.8 kg
[~2016-09-28 05:37] MED LIST changes: +FAMO-119 PO; +SUCR1TAB36 PO
== END 2016-09-28 14:27 ==
LOC: PREOP 05:37
PROVIDERS: ATTEND Surgery
DX: Z01.818 Encounter for other preprocedural examination (principal); R10.13 Epigastric pain

== ENCOUNTER 2016-10-02 10:17 | Day surgery (SDC) | payer BC ==
[~2016-10-02] VITALS: Ht 167.6 cm; Wt 99.8 kg
[2016-10-02 10:20] VITALS: BP 122/74
[2016-10-02] MEDS ORDERED: FLUMAZENIL (ROMAZICON) 0.1 MG/ML 5 ML VIAL INJ PRN (10:30)
[2016-10-02] MEDS ORDERED: HURRICAINE EXT TUBE (BENZOCAINE) XX PRN (10:30)
[2016-10-02] MEDS ORDERED: NALOXONE 0.4 MG/ML 1 ML (NARCAN) VIAL IVP PRN (10:30)
[2016-10-02] MEDS ORDERED: NS IV 500 ML 500 ML IV PRN (10:30)
--- NOTE | 2016-10-02 10:36 | Conscious Sedation/ASA ---
Conscious Sedation Pre-Proced Time Reviewed: 10:36 ASA Class: 2 Airway Mallampati Classification: ([place] appropriate class) I. II. III, IV Lungs Heart ASA score ASA 1: a normal healthy patient ASA 2: a patient with a mild systemic disease (mid diabetes, controlled hypertension, obesity ASA 3: a patient with a severe systemic disease that limits activity (angina , COPD, prior Myocardial infarction) ASA 4: a patient with an incapacitating disease that is a constant threat to life (CHF, renal failure) ASA 5: a moribund patient not expected to survive 24 hrs. (ruptured aneurysm) ASA 6: a declared brain patient whose organs are being harvested. For emergent operations, add the letter E after the classification Grade 1 Sedation Plan: Discussed options with patient/fam Note The patient is an appropriate candidate to undergo the planned procedure, sedation, and anesthesia. The patient immediately re-assessed prior to indication. ERICK WINCHESTER MD October 02, 2016 10:36 am
[2016-10-02] MEDS ORDERED: MIDAZOLAM 2 MG/2 ML (VERSED) VIAL ONE ×3 (10:46→10:47)
[2016-10-02] MEDS ORDERED: HURRICAINE EXT TUBE (BENZOCAINE) ONE (10:47)
[2016-10-02] MEDS ORDERED: fentaNYL INJECTION 100 MCG/2 ML AMP ONE (10:47)
[2016-10-02 11:25] VITALS: BP 126/74
[2016-10-02 11:50] VITALS: BP 125/80
[2016-10-02] MEDS ORDERED: PANT40TA2 PO (12:15)
[2016-10-02 12:30] VITALS: BP 125/80
--- NOTE | 2016-10-03 00:45 | OPERATIVE REPORT ---
DATE OF SERVICE: 10/02/2016 PROCEDURE: Upper GI endoscopy with antral biopsy. SURGEON: Erick Winchester MD INDICATION: This gentleman came in for upper endoscopy to evaluate epigastric pain. Informed consent was obtained after reviewing the procedure in detail. DESCRIPTION OF PROCEDURE: He was placed in left lateral decubitus position and his vital signs were monitored. Conscious sedation was achieved using Versed and fentanyl. The flexible gastroscope was then introduced in the esophagus, past the stomach, into the proximal duodenum. FINDINGS: Esophagus: Grade III esophagitis with a short hiatal hernia. Stomach: Multiple antral erosions and shallow ulcers were found. Biopsy was obtained for Helicobacter pylori. Duodenum: Changes of duodenitis were found along the first part. He tolerated the procedure well and was taken back to the nursing area in a stable condition. IMPRESSION: Epigastric pain. Esophagitis and gastric erosions. We will treat with proton pump inhibitors. Job ID: [id number] DocumentID: [id number] Dictated Date: 10/02/2016 11:08:40 Insurance Compliance Analyst Date: 10/03/2016 00:27:17 Dictated By: ERICK WINCHESTER MD MTDD
== END 2016-10-02 12:30 | disposition home or self-care (01) ==
LOC: ENDO 10:17
PROVIDERS: ATTEND Surgery
DX: K21.9 Gastro-esophageal reflux disease without esophagitis (principal); K29.80 Duodenitis without bleeding; K44.9 Diaphragmatic hernia without obstruction or gangrene; K31.9 Disease of stomach and duodenum, unspecified

== ENCOUNTER → 2016-12-12 | Outpatient (CLI) | payer BC ==
[~2016-12-12] VITALS: Ht 167.6 cm; Wt 99.8 kg
[~2016-12-12] MED LIST changes: +GADOBUTROL 7.5 MMOL/7.5 ML (GADAVIST) VIAL IV ONE; +IOHEXOL 300 MG/ML 30 ML (OMNIPAQUE 300) VIAL IV ONE; +PANT40TA2 PO
[2016-12-12 13:42] VITALS: BP 124/80
[2016-12-12 14:36] VITALS: BP 129/84
--- NOTE | 2016-12-12 15:26 | Diagnostic Imaging Report ---
EXAMINATION: Fluoroscopic guided joint injection/arthrogram- right shoulder. INDICATION: Right shoulder pain, request for MR arthrogram of the shoulder is submitted. Fluoroscopy time: 3 minutes and 48 seconds CONSENT: Informed consent was obtained from the patient. The risks, benefits, potential complications and alternatives were reviewed and all questions answered to the patient's satisfaction. PROCEDURE: After sterile preparation and draping, 1% lidocaine was utilized for local anesthesia. A 22 spinal needle is introduced into the glenohumeral joint under fluoroscopic guidance. Despite good positioning of the needle multiple attempts and manipulation was needed for the injection to diffuse in the joint space. This could be related to scarring and prior surgery. After confirmation of proper positioning with intra-articular injection of, 12 ml of 1:150 concentration of Gadavist in normal saline is injected the into the joint. The patient tolerated the procedure well with no immediate complications. FINDINGS: Arthrogram demonstrates Normal distribution of contrast in the joint with no filling of the subacromial subdeltoid bursa seen. IMPRESSION: Successful fluoroscopic guided injection of diluted gadolinium into the right shoulder . MR arthrogram to follow. Dictated by: Dictated on workstation # [id number]
--- NOTE | 2016-12-12 16:15 | Diagnostic Imaging Report ---
MRI RT UPPER EXT JOINT WITH TECHNIQUE: Multiplanar, multisequence MR imaging of the right shoulder was performed after direct intra-articular contrast administration into the glenohumeral joint. COMPARISON: Shoulder MRI from 12/01/2015. INDICATION: Right shoulder pain. Prior superior labral repair. FINDINGS: Rotator cuff: No rotator cuff tear. The cuff is normal in bulk. There is a small amount of intramuscular contrast material within the subscapularis due to arthrogram. Glenoid labrum: Surgical changes from prior labral repair, which utilized 2 soft tissue anchors in the superior glenoid. The posterior soft tissue anchor is displaced from the glenoid and is located along the superior aspect of the superior acetabulum (images 7-9, series 6 and image 10, series 3). Long head of biceps: Complete rupture of the long head of the biceps since prior examination. Bones and cartilage: No fracture, stress fracture or osteonecrosis. No high-grade chondromalacia of the glenohumeral joint. The acromioclavicular joint is normal alignment without significant degenerative change. Soft tissues: Glenohumeral joint is well distended with intra-articular contrast material. No fluid extending into the subacromial and subdeltoid space. No MRI findings of adhesive capsulitis. IMPRESSION: 1. Prior superior labral repair with the posterior soft tissue labral anchor displaced from its glenoid cavity and located along the superior margin of the superior labrum. Given displaced anchor, the prior superior labral repair has failed, although there is no displaced labral fragment. 2. Since prior MRI of 2015, there has been complete rupture of the long head of the biceps versus biceps tenodesis. However, there is no tenodesis screw seen in the proximal humerus. Correlation with surgical history is advised. 3. No rotator cuff tear. Dictated by: Dictated on workstation # [id number]
== END ==
LOC: RAD 13:31
PROVIDERS: ATTEND Orthopaedic Surgery
DX: T84.428A Displacement of other internal orthopedic devices, implants and grafts, initial encounter (principal); S46.111A Strain of muscle, fascia and tendon of long head of biceps, right arm, initial encounter; X58.XXXA Exposure to other specified factors, initial encounter; Y99.8 Other external cause status
CPT/HCPCS: 23350; 73040; 73222

== ENCOUNTER → 2017-10-19 | Outpatient (CLI) | payer BC ==
[~2017-10-19] MED LIST changes: +ACHD5005; +ALPR1TAB2 PO; -GADOBUTROL 7.5 MMOL/7.5 ML (GADAVIST) VIAL IV ONE; -HYDR-3812; -IOHEXOL 300 MG/ML 30 ML (OMNIPAQUE 300) VIAL IV ONE; +METH20TA PO
--- NOTE | 2017-10-19 08:54 | Diagnostic Imaging Report ---
INDICATION: Abdominal pain. Gallbladder sonography performed in the routine fashion. FINDINGS: The liver shows normal echogenicity with no focal lesions. Gallbladder is contracted and therefore its evaluation is limited but no definite stones are visualized. Common duct could not be visualized. Pancreas is obscured by overlying gas. Right kidney was normal measuring 10.6 cm in length. There is no ascites. IMPRESSION: Gallbladder is contracted and therefore its evaluation is limited. Consider repeat study for prolonged fasting as clinically warranted. There is no other abnormal finding with some limitation as above. Dictated by: Dictated on workstation # [id number]
== END ==
LOC: RAD 07:09
PROVIDERS: ATTEND Surgery
DX: R10.9 Unspecified abdominal pain (principal)
CPT/HCPCS: 76705

== ENCOUNTER 2017-11-08 09:40 | Day surgery (SDC) | payer BC ==
[~2017-11-08] VITALS: Ht 167.6 cm; Wt 100.2 kg
[~2017-11-08 09:40] MED LIST changes: +ASPI-808 PO
[2017-11-08 09:53] VITALS: BP 127/88
[2017-11-08] MEDS ORDERED: ceFAZolin 2 GM IV Premixed 50 ML IV ONE ×2 (10:00)
[2017-11-08] MEDS: LACTATED RINGERS 1,000 ML IV PRN ×2 (10:03→12:20)
[2017-11-08] MEDS ORDERED: MIDAZOLAM 2 MG/2 ML (VERSED) VIAL IV ONE (10:30)
--- NOTE | 2017-11-08 10:35 | Progress Note-Pre Operative ---
Pre-Operative Progress Note H&P Reviewed The H&P was reviewed, patient examined and no changes noted. Date Seen by Provider: Nov 08, 2017 Time Seen by Provider: 10:35 Date H&P Reviewed: Nov 08, 2017 Time H&P Reviewed: 10:35 Pre-Operative Diagnosis: ruq abdominal pain, biliary dyskinesia NOMAN LOVE DO Nov 08, 2017 10:35
[2017-11-08] MEDS ORDERED: BUPIVACAINE 0.5% 30 ML (SENSORCAINE) VIAL ONE (11:51)
[2017-11-08] MEDS ORDERED: LIDOCAINE 1% INJ 20 ML 20 ML VIAL ONE (11:51)
[2017-11-08] MEDS ORDERED: fentaNYL INJECTION 100 MCG/2 ML AMP ONE (11:58)
[2017-11-08] MEDS ORDERED: LACTATED RINGERS 1,000 ML IV ONE (11:58)
[2017-11-08] MEDS ORDERED: proPOfol 200 MG/20 ML (DIPRIVAN) VIAL IV ONE (11:58)
[2017-11-08] MEDS ORDERED: MIDAZOLAM 2 MG/2 ML (VERSED) VIAL ONE (11:58)
[2017-11-08] MEDS ORDERED: LIDOCAINE PF 2% 5 ML (XYLOCAINE) VIAL ONE (11:58)
[2017-11-08] MEDS ORDERED: SEVOFLURANE (ULTANE) 15 ML INHAL SOLN ONE ×3 (11:58→13:18)
--- NOTE | 2017-11-08 13:14 | Progress Note-Post Operative ---
Post-Operative Progess Note Surgeon (s)/Pillowcase Cleaner (s) Surgeon NOMAN LOVE DO Pillowcase Cleaner: Dr. Ramos Pre-Operative Diagnosis ruq abdominal pain, biliary dyskinesia Post-Operative Diagnosis same Procedure & Operative Findings Date of Procedure 11/08/17 Procedure Performed/Findings lap hien c IOC Anesthesia Type gen Estimated Blood Loss Estimated blood loss (mL): min Specimens/Packing Specimens Removed gallbladder NOMAN LOVE DO Nov 08, 2017 13:14
[2017-11-08] MEDS ORDERED: DOCU-143 PO (13:15)
[2017-11-08] MEDS ORDERED: HYDROcodone/APAP 5 MG/325 MG (LORTAB) TAB PO PRN (13:15)
[2017-11-08] MEDS ORDERED: ACHD5005 PO (13:15)
--- NOTE | 2017-11-08 13:16 | Discharge Inst-Simple/Standard ---
Discharge Inst-Standard Discharge Medications New, Converted or Re-Newed RX: RX on Chart Patient Instructions/Follow Up Plan of Care/Instructions/FU: 2weeks Samuel Activity as Tolerated: No Discharge Diet: Regular Diet Other Inst to Patient Follow up Appt: Make appointment for 2 weeks. Instructions: No lifting greater than 10 pounds. No strenuous activity. May shower in 24 hours, no tub bath or soaking. Use incentive spirometer at home as directed. No Smoking Skin/Wound Care: You have special glue over incisions it will fall off on its own. Symptoms to Report: Appetite Changes, Extremity Discoloration, Numbness/Tingling, Swelling Increased , Bleeding Excessive, Eyesight Changes, Pain Increased, Urine Color Change, Constipation(Persistent), Fever over 101 degree F, Pain/Pressure in chest, Urinating Difficulty, Cough Up/Vomit Blood, Heart Beat Irreg/Pounding, Pain/ Pressure in jaw, Vaginal Bleeding Increase, Cramps in feet or legs, Lightheadedness, Pain/Pressure in shoulder, Diarrhea(Persistent), Memory Changes Suddenly, Questions/Concerns, Weight gain consecutive days, Dizziness/ Fainting, Nausea/Vomiting, Shortness of Breath, Weight gain over 2 pounds. If eyes or skin turn yellow notify physician. If questions or concerns contact your physician Or seek help at emergency department. NOMAN LOVE DO Nov 08, 2017 13:16
[2017-11-08] MEDS ORDERED: ONDANSETRON 4 MG/2 ML (SDV) Z0FRAN ONE (13:18)
[2017-11-08] MEDS ORDERED: GLYCOPYRROLATE 0.2 MG/ML (ROBINUL) 2 ML VIAL ONE (13:23)
[2017-11-08] MEDS ORDERED: NEOSTIGMINE 1 MG/ML 5 ML SYRINGE ONE (13:23)
[2017-11-08] MEDS: morphine INJ 10 MG/ML 1ML (SYR OR VIAL) IVP PRN ×2 (13:55→14:00)
[2017-11-08] MEDS ORDERED: morphine INJ 10 MG/ML 1ML (SYR OR VIAL) ONE (13:57)
[2017-11-08] MEDS ORDERED: MEPERIDINE (DEMEROL) INJ 50 MG/ML IVP PRN (14:00)
[2017-11-08] MEDS ORDERED: ONDANSETRON 4 MG/2 ML (SDV) Z0FRAN IVP PRN (14:00)
--- NOTE | 2017-11-08 14:44 | Anesthesia-General Post-Op ---
General Patient Condition Mental Status/LOC: Same as Preop Cardiovascular: Satisfactory Nausea/Vomiting: Absent Respiratory: Satisfactory Pain: Controlled Complications: Absent Post Op Complications Complications None Follow Up Care/Instructions Patient Instructions None needed. Anesthesia/Patient Condition Patient Condition Patient is doing well, no complaints, stable vital signs, no apparent adverse anesthesia problems. JACK MORALES DO Nov 08, 2017 14:44
[2017-11-08 14:50] VITALS: BP 141/87
[2017-11-08 15:20] VITALS: BP 126/77
[2017-11-08 15:45] VITALS: BP 126/77
--- NOTE | 2017-11-08 16:44 | Diagnostic Imaging Report ---
Indication: Laparoscopic cholecystectomy. Intraoperative cholangiogram. Comparison: None Total flow time: 7 seconds Findings: Multiple intraoperative images and 5 views of the right upper abdominal quadrant were obtained during intraoperative cholangiogram. Images provided show contrast filling the intra-and extrahepatic biliary ductal systems. No intraluminal filling defects are seen. Contrast washes out into the small bowel. Impression: 1. Intraoperative cholangiogram, as described above. Dictated by: Dictated on workstation # [id number]
--- NOTE | 2017-11-08 23:18 | OPERATIVE REPORT ---
DATE OF SERVICE: 11/08/2017 PREOPERATIVE DIAGNOSIS: Right upper quadrant abdominal pain, biliary dyskinesia. POSTOPERATIVE DIAGNOSIS: Right upper quadrant abdominal pain, biliary dyskinesia. PROCEDURE: Laparoscopic cholecystectomy with intraoperative cholangiogram. SURGEON: Noman Baker DO. HEAD OF BUSINESS DEVELOPMENT: Dr. Ramos, assisted in retraction, dissection and closure. ANESTHESIA: General. ESTIMATED BLOOD LOSS: Minimal. COMPLICATIONS: None. INDICATIONS: The patient is a 42-year-old male who has been having right upper quadrant abdominal pain. He has had an EGD and placed on PPI without any improvement. The patient had ultrasound performed, which was normal, had a HIDA scan, which had ejection fraction 98%. The patient was explained risks and benefits of procedure and wished to proceed with the procedure. Consent was signed on the chart. DESCRIPTION OF PROCEDURE: The patient was taken to the operating suite, was prepped and draped in sterile fashion. Surgical pause was performed. Local anesthetic was infiltrated just above the umbilicus. A 11 blade scalpel was used to make a skin incision and Anne technique was used to enter the abdomen. The fascia had 0 Vicryl suture placed in pjfmmy-ex-nellf fashion for closure at the end of the case. A balloon trocar was inserted in the abdomen and pneumoperitoneum was achieved. Under direct visualization of the laparoscope, a 5 mm trocar was then placed in subxiphoid region and two 5 mm trocars were placed in the right upper quadrant. The gallbladder was grasped and elevated. Cystic duct and cystic artery were then dissected out. Clips were placed on the proximal and distal portion of the cystic artery and on the distal portion of the cystic duct. The duct was then partially transected. Arrow catheter was inserted into the duct and cholangiogram was performed. There were no filling defects. Contrast made its way into the duodenum without difficulty. The catheter was removed and clips were placed on the proximal portion of the cystic duct and the duct and artery were then completely transected. Hook cautery was used to dissect the gallbladder from the gallbladder fossa achieving hemostasis. Gallbladder was placed in an Endobag and removed through the 12 mm trocar site. The abdomen was then irrigated with copious amounts of irrigation and suction. The abdomen was then desufflated, the trocars were removed. A 0 Vicryl was then tied closing the fascial defect of the 12 mm trocar site. The skin was then closed using 4-0 Monocryl in a subcuticular fashion. The area was then washed and dried and Skin Affix was placed over the incisions. The patient tolerated the procedure well without any complications. He was taken to recovery room in stable condition. Job ID: [id number] DocumentID: [id number] Dictated Date: 11/08/2017 15:52:53 Line Fixer Date: 11/08/2017 23:18:18 Dictated By: NOMAN BAKER DO
== END 2017-11-08 15:45 | disposition home or self-care (01) ==
LOC: SDC 09:40
PROVIDERS: ATTEND Surgery
DX: K81.1 Chronic cholecystitis (principal); F17.210 Nicotine dependence, cigarettes, uncomplicated; Z79.82 Long term (current) use of aspirin; Z79.899 Other long term (current) drug therapy
CPT/HCPCS: 88304; 94664

== ENCOUNTER → 2017-12-18 | Outpatient (CLI) | payer BC ==
[~2017-12-18] MED LIST changes: +ACHD5005 PO; +DOCU-143 PO
== END ==
LOC: CARD 14:20
PROVIDERS: ATTEND Family Medicine
DX: R00.0 Tachycardia, unspecified (principal)
CPT/HCPCS: 93225; 93226

== ENCOUNTER → 2018-01-11 | Outpatient (CLI) | payer BC ==
--- NOTE | 2018-01-11 08:18 | Diagnostic Imaging Report ---
INDICATION: Pre-syncope. Dizziness. TECHNIQUE: Routine non contrast-enhanced axial images were obtained from the skull base to the vertex. COMPARISON: 09/13/2014. FINDINGS: The ventricles and cortical sulci are normal in size and contour. There is no midline shift or mass-effect. No acute intra-axial hemorrhage is seen. There are no abnormal areas of increased or decreased density to suggest acute hemorrhage or edema. No extra-axial masses or collections are present. The bony calvarium is intact. The visualized paranasal sinuses are unremarkable. The mastoid air cells are clear. IMPRESSION: 1. No acute intracranial abnormality. No CT evidence of mass, acute infarct or intracranial hemorrhage. Dictated by: Dictated on workstation # [id number]
== END ==
LOC: RAD 07:49
PROVIDERS: ATTEND Nurse Practitioner Family
DX: R55 Syncope and collapse (principal); R51 Headache; R42 Dizziness and giddiness
CPT/HCPCS: 70450

== ENCOUNTER → 2018-09-13 | Outpatient (CLI) | payer BC ==
--- NOTE | 2018-09-13 12:22 | Diagnostic Imaging Report ---
PROCEDURE: CT abdomen and pelvis without contrast. TECHNIQUE: Multiple contiguous axial images were obtained through the abdomen and pelvis without the use of intravenous contrast. Auto Exposure Controls were utilized during the CT exam to meet ALARA standards for radiation dose reduction. INDICATION: Left testicular pain. FINDINGS: The images through the low pelvis show no obvious abnormality of the testicles or scrotum. Reportedly, ultrasound is pending for further study. There is no pelvic mass or free fluid collection evident. As noted on the previous CT abdomen/pelvis exam of 08/14/2016, there is diverticulosis of the sigmoid colon, but there is no sign of acute diverticulitis. There is no pelvic mass or free fluid collection identified. The appendix was not particularly well visualized, but there are no indirect signs of acute appendicitis. The urinary bladder and prostate gland are grossly unremarkable. As seen on the prior study, there does appear to be a small metallic density within the mid portion of the prostate gland. Correlation with the patient's history would be recommended. The previous study did suggest a flash hemangioma of the right lobe of the liver and a small hemangioma in the superior pole of the spleen. Those findings are not well appreciated on this study due to the absence of intravenous contrast. The liver and spleen seem generally unchanged when compared to the prior study. The pancreas, the adrenals, the kidneys, the aorta, and the inferior vena cava show no sign of an acute abnormality. As seen on the prior study, the gallbladder is surgically absent. The stomach is not well distended and consequently difficult to assess. The lung bases are clear. The bone windows show no sign of a fracture or of a destructive lesion. There may be healed bilateral pars defects at L5. IMPRESSION: 1. There is no acute abnormality of the testicles or scrotum. Ultrasound is pending for further study. 2. There is no acute abnormality of the abdomen or pelvis. 3. The small metallic density within the prostate gland is of uncertain etiology. Correlation with the patient's history would be recommended. 4. The suspected flash hemangioma of the right lobe of the liver and the hemangioma involving the superior pole of the spleen seen previously cannot be appreciated on this study due to the absence of intravenous contrast. Dictated by: Dictated on workstation # [id number]
== END ==
LOC: RAD 08:08
PROVIDERS: ATTEND Urology
DX: N50.812 Left testicular pain (principal); Z87.442 Personal history of urinary calculi
CPT/HCPCS: 74176

== ENCOUNTER 2018-11-06 05:33 | Outpatient (CLI) | payer BC ==
[~2018-11-06] VITALS: Ht 170.2 cm; Wt 90.7 kg
[2018-11-06] MEDS ORDERED: NF-ADDXR30 PO (15:19)
[2018-11-06] MEDS ORDERED: HYDR-3812 PO (15:19)
== END 2018-11-06 15:24 | disposition home or self-care (01) ==
LOC: PREOP 05:33
PROVIDERS: ATTEND Surgery
DX: Z01.818 Encounter for other preprocedural examination (principal)

== ENCOUNTER 2018-11-21 06:04 | Day surgery (SDC) | payer BC ==
[~2018-11-21] VITALS: Ht 172.7 cm; Wt 94.8 kg
[2018-11-21] VITALS (11 sets, daily range): BP systolic 119–149; BP diastolic 77–98
[~2018-11-21 06:04] MED LIST changes: +HYDR-3812 PO; +NF-ADDXR30 PO
[2018-11-21] MEDS ORDERED: LACTATED RINGERS 1,000 ML IV PRN (06:14)
[2018-11-21] MEDS ORDERED: ceFAZolin INJECTION 1,000 MG in WATER (STERILE) FOR INJECTION 10 ML IV ONE (06:15)
[2018-11-21] MEDS ORDERED: BUP/EPI 0.5% 1:200,000 (SENSORCAINE) 30 ML VIAL ONE (07:00)
[2018-11-21] MEDS ORDERED: DEXAMETHASONE 10 MG/ML (DECADRON) 1 ML VIAL ONE (07:07)
[2018-11-21] MEDS ORDERED: ROCURONIUM 10 MG/ML 5 ML SYRINGE IV ONE (07:07)
[2018-11-21] MEDS ORDERED: proPOfol 200 MG/20 ML (DIPRIVAN) VIAL IV ONE ×2 (07:07→08:17)
[2018-11-21] MEDS ORDERED: fentaNYL INJECTION 100 MCG/2 ML AMP ONE ×2 (07:07→07:38)
[2018-11-21] MEDS ORDERED: MIDAZOLAM 2 MG/2 ML (VERSED) VIAL ONE (07:07)
[2018-11-21] MEDS ORDERED: ONDANSETRON 4 MG/2 ML (SDV) Z0FRAN ONE (07:07)
[2018-11-21] MEDS ORDERED: meTOprolol 5 MG/5 ML (LOPRESSOR) VIAL ONE (07:07)
--- NOTE | 2018-11-21 07:15 | Progress Note-Pre Operative ---
Pre-Operative Progress Note H&P Reviewed The H&P was reviewed, patient examined and no changes noted. Date Seen by Provider: Nov 21, 2018 Time Seen by Provider: 07:03 Date H&P Reviewed: Nov 21, 2018 Time H&P Reviewed: 07:00 Pre-Operative Diagnosis: left inguinal hernia NOMAN LOVE DO Nov 21, 2018 07:15
[2018-11-21] MEDS ORDERED: ceFAZolin INJECTION 1,000 MG ONE ×2 (07:48→08:00)
[2018-11-21] MEDS ORDERED: ceFAZolin INJECTION 1,000 MG VIAL IV ONE (08:00)
[2018-11-21] MEDS ORDERED: ACHD5005 PO (08:09)
[2018-11-21] MEDS ORDERED: DOCU-143 PO (08:09)
--- NOTE | 2018-11-21 08:11 | Discharge Inst-Simple/Standard ---
Discharge Inst-Standard Discharge Medications New, Converted or Re-Newed RX: RX on Chart Patient Instructions/Follow Up Plan of Care/Instructions/FU: 3 weeks Baker Activity as Tolerated: No Discharge Diet: Regular Diet Other Inst to Patient Follow up Appt: Make appointment for 3 week. Instructions: No lifting greater than 10 pounds. No strenuous activity. May shower in 24 hours, no tub bath or soaking. Use incentive spirometer at home as directed. No Smoking Skin/Wound Care: You have special glue over incisions it will fall off on its own. Symptoms to Report: Appetite Changes, Extremity Discoloration, Numbness/Tingling, Swelling Increased, Bleeding Excessive, Eyesight Changes, Pain Increased, Urine Color Change, Constipation(Persistent), Fever over 101 degree F, Pain/Pressure in chest, Urinating Difficulty, Cough Up/Vomit Blood, Heart Beat Irreg/Pounding, Pain/Pressure in jaw, Vaginal Bleeding Increase, Cramps in feet or legs, Lightheadedness, Pain/Pressure in shoulder, Diarrhea(Persistent), Memory Changes Suddenly, Questions/Concerns, Weight gain consecutive days, Dizziness/Fainting, Nausea/Vomiting, Shortness of Breath, Weight gain over 2 pounds If questions or concerns contact your physician Or seek help at emergency department. NOMAN BKAER DO Nov 21, 2018 08:11
--- NOTE | 2018-11-21 08:13 | Progress Note-Post Operative ---
Post-Operative Progess Note Surgeon (s)/Theatre Program Director (s) Surgeon NOMAN LOVE DO Theatre Program Director: Dr. Ramos Pre-Operative Diagnosis left inguinal hernia Post-Operative Diagnosis direct left inguinal hernia Procedure & Operative Findings Date of Procedure 11/21/18 Procedure Performed/Findings open left inguinal hernia repair Anesthesia Type gen Estimated Blood Loss Estimated blood loss (mL): min Specimens/Packing Specimens Removed na NOMAN LVOE DO Nov 21, 2018 08:12
[2018-11-21] MEDS ORDERED: fentaNYL INJECTION 100 MCG/2 ML AMP IVP ONE (08:15)
[2018-11-21] MEDS ORDERED: morphine INJ 10 MG/ML 1ML (SYR OR VIAL) IVP ONE (08:15)
[2018-11-21] MEDS ORDERED: MEPERIDINE (DEMEROL) INJ 50 MG/ML IVP ONE (08:15)
[2018-11-21] MEDS ORDERED: ONDANSETRON 4 MG/2 ML (SDV) Z0FRAN IVP PRN (08:15)
[2018-11-21] MEDS ORDERED: HYDROcodone/APAP 5 MG/325 MG (LORTAB) TAB PO ONE (09:30)
--- NOTE | 2018-11-21 09:32 | NUR ---
CALLED RT AT THIS TIME TO REQUEST I.S. TEACHING, STATED THEY WOULD BE HERE SHORTLY
--- NOTE | 2018-11-21 10:00 | NUR ---
RT AT BEDSIDE FOR I.S. TEACHING AT [id number]
--- NOTE | 2018-11-21 10:41 | Anesthesia-General Post-Op ---
General Patient Condition Mental Status/LOC: Same as Preop Cardiovascular: Satisfactory Nausea/Vomiting: Absent Respiratory: Satisfactory Pain: Controlled Complications: Absent Post Op Complications Complications None Follow Up Care/Instructions Patient Instructions None needed. Anesthesia/Patient Condition Patient Condition Patient is doing well, no complaints, stable vital signs, no apparent adverse anesthesia problems. No complications reported per nursing. DK WOLF CRNA Nov 21, 2018 10:41
--- NOTE | 2018-11-22 04:51 | OPERATIVE REPORT ---
DATE OF SERVICE: 11/21/2018 PREOPERATIVE DIAGNOSIS: Left inguinal hernia. POSTOPERATIVE DIAGNOSIS: Left inguinal hernia. PROCEDURE: Open left inguinal hernia repair. SURGEON: Noman Baker DO PROFESSIONAL SOCCER PLAYER: Calderon Ramos DO, assisted in retraction, dissection and closure. ANESTHESIA: General. ESTIMATED BLOOD LOSS: Minimal. COMPLICATIONS: None. INDICATIONS: The patient is a 43-year-old male with a left inguinal hernia. He understands risks and benefits of procedure and wished to proceed with procedure. Consent was signed in the chart. DESCRIPTION OF PROCEDURE: The patient was taken to the operating suite. He was prepped and draped in sterile fashion. Timeout was performed. Local anesthetic was used to infiltrate the left groin area. A 15 blade scalpel was used to make a skin incision and cautery used to dissect down to the external oblique. The external oblique was then opened down to the external ring and the cord was then isolated and retracted with a Daniel around it. No indirect defect. There was a large floor defect, which then 0 Vicryl was used to close the floor defect. The ProGrip mesh was then cut to size and secured to Bernard's ligament and then was placed in the usual fashion incorporating the mesh around the spermatic cord. All lying underneath the external oblique. The wound was then irrigated with copious amounts of irrigation and then suction. The external oblique was then closed using 3-0 Vicryl in a running subcuticular fashion, recreating the external ring. Subcutaneous tissues were then reapproximated using 3-0 Vicryl. Skin was then closed using 4-0 Monocryl in subcuticular fashion. The abdomen was then washed and dried. Skin Affix was placed over the incisions. The patient tolerated procedure well without any complications, taken to recovery room in stable condition. Job ID: [id number] DocumentID: [id number] Dictated Date: 11/21/2018 22:39:25 Sliver Lap Tender Date: 11/22/2018 04:50:15 Dictated By: NOMAN BAKER DO
== END 2018-11-21 10:19 | disposition home or self-care (01) ==
LOC: SDC 06:04
PROVIDERS: ATTEND Surgery
DX: K40.90 Unilateral inguinal hernia, without obstruction or gangrene, not specified as recurrent (principal); Z11.2 Encounter for screening for other bacterial diseases; F17.210 Nicotine dependence, cigarettes, uncomplicated; F32.9 Major depressive disorder, single episode, unspecified; F41.9 Anxiety disorder, unspecified; F43.10 Post-traumatic stress disorder, unspecified; K21.9 Gastro-esophageal reflux disease without esophagitis; Z79.899 Other long term (current) drug therapy
CPT/HCPCS: 87081; 94664

== ENCOUNTER 2018-12-02 16:09 | Emergency (ER) | payer BC ==
[~2018-12-02] VITALS: Ht 172.7 cm; Wt 94.8 kg
[2018-12-02] MEDS ORDERED: morphine INJ 10 MG/ML 1ML (SYR OR VIAL) IM STA (16:38)
[2018-12-02] MEDS ORDERED: KETOROLAC 60 MG/2 ML VIAL IM STA (16:38)
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
[2018-12-02 17:39] VITALS: BP 149/92
--- NOTE | 2018-12-02 17:39 | Diagnostic Imaging Report ---
EXAMINATION: US Scrotum. TECHNIQUE: Scrotal ultrasound with grayscale, color and spectral Doppler analysis. INDICATION: Testicular pain. COMPARISON: Scrotal ultrasound performed on 09/13/2018. FINDINGS: Both testicles are normal in size, morphology and echotexture without mass, calcification or inflammation. Normal arterial waveforms are identified in both testicles. There is a small right epididymal head cyst/spermatocele. Otherwise normal epididymides. There are small bilateral hydroceles. There is mild prominence of vessels in the right pampiniform plexus, however, these do not measure greater than 3 mm in diameter and are not felt to reflect a varicocele. No varicocele the left. No extratesticular mass is appreciated on either side. Right testicle: 4.7 x 2.7 x 2.3 cm. Left testicle: 4.5 x 2.1 x 2.7 cm. IMPRESSION: Scrotal ultrasound is within normal limits. There has been no suspicious change since previous exam. Incidental note is made of small bilateral hydroceles and a small right epididymal cyst/spermatocele. There is no evidence of torsion or epididymoorchitis at this time. Dictated by: Dictated on workstation # [id number]
--- OUTSIDE RECORDS SUMMARY | 2018-12-03 01:15 | XMS REPORT | Continuity of Care Document ---
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 corpuscular volume 85 [foz_us] 80-99 Automated erythrocyte mean corpuscular hemoglobin (mass per erythrocyte) 30 pg 25-34 Automated erythrocyte mean corpuscular hemoglobin concentration measurement (mass/volume) 36 g/dL 32-36 Automated erythrocyte distribution width ratio 13.3 % 10.0- 14.5 Automated blood platelet count (count/volume) 299 10*3/uL 130-400 Automated blood platelet mean volume measurement 9.5 [foz_us] 7.4-10.4 Automated blood neutrophils/100 leukocytes 54 % 42-75 Automated blood lymphocytes/100 leukocytes 38 % 12-44 Blood monocytes/100 leukocytes 7 % 0-12 Automated blood eosinophils/100 leukocytes 1 % 0-10 Automated blood basophils/100 leukocytes 0 % 0-10 Blood neutrophils automated count (number/volume) 4.7 10*3 1.8-7.8 Blood lymphocytes automated count (number/volume) 3.2 10*3 1.0-4.0 Blood monocytes automated count (number/volume) 0.6 10*3 0.0- 1.0 Automated eosinophil count 0.1 10*3/uL 0.0-0.3 Automated blood basophil count (count/volume) 0.0 10*3/uL 0.0-0.1 Serum or plasma thyrotropin measurement by detection limit <=0.05 miu/l (units/volume) - 01/08/18 09:25 Serum or plasma thyrotropin measurement by detection limit <=0.05 miu/l (units/volume) 1.33 u[iU]/mL 0.35-4.94 Capillary blood glucose measurement by glucometer (mass/volume) - 01/08/18 10:36 Capillary blood glucose measurement by glucometer (mass/volume) 96 mg/dL 70-110 Methicillin resistant Staphylococcus aureus (MRSA) screening culture - 11/21/18 06:23 Methicillin resistant Staphylococcus aureus (MRSA) screening culture NEG NRG Encounters ACCT No. Visit Date/Time Discharge Status Pt. Type Provider Facility Loc./Unit Complaint [id number] 11/08/2018 11:05:00 11/08/2018 23:59:59 CLS Outpatient LEATHA [facility]RI[facility]A [facility] [id number] 08/28/2014 13:40:00 08/28/2014 23:59:59 CLS Outpatient SANGEETHA MIKE APRN [id number] 08/26/2014 12:55:00 08/26/2014 23:59:59 CLS Outpatient SHANA KILPATRICK [id number] 08/12/2014 12:58:00 08/12/2014 23:59:59 CLS Outpatient SHANA KILPATRICK [id number] 07/17/2014 09:30:00 07/17/2014 23:59:59 CLS Outpatient RASHID SANGEETHA LANDON [id number] 07/17/2014 09:30:00 07/17/2014 23:59:59 CLS Outpatient SANGEETHA MIKE APRN [id number] 05/22/2014 11:20:00 05/22/2014 23:59:59 CLS Outpatient SANGEETHA MIKE APRN [id number] 04/07/2014 11:51:00 04/07/2014 23:59:59 CLS Outpatient SHANA KILPATRICK [id number] 04/07/2014 10:28:00 04/07/2014 23:59:59 CLS Outpatient RASHID ADOBE LAYERSANGEETHA Abdul [id number] 02/06/2014 16:42:00 02/06/2014 23:59:59 CLS Outpatient RASHID ADOBE LAYERSANGEETHA Abdul [id number] 02/06/2014 16:42:00 02/06/2014 23:59:59 CLS Outpatient RASHID ADOBE LAYERSANGEETHA Abdul [id number] 01/30/2014 09:37:00 01/30/2014 23:59:59 CLS Outpatient SHANA KILPATRICK [id number] 01/08/2014 08:58:00 01/08/2014 23:59:59 CLS Outpatient RASHID ADOBE LAYER, SANGEETHA [id number] 12/19/2013 12:45:00 12/19/2013 23:59:59 CLS Outpatient SHANA KILPATRICK [id number] 08/26/2012 13:37:00 Document Registration [id number] 08/22/2012 13:37:00 Document Registration [id number] 11/21/2018 06:04:00 11/21/2018 10:19:00 DIS Outpatient NOMAN LOVE DO [facility] LEFT INGUINAL HERNIA [id number] 11/06/2018 05:33:00 11/06/2018 15:24:00 DIS Outpatient NOMAN LOVE DO [facility] PREOP LEFT INGUINAL HERNIA [id number] 09/13/2018 08:08:00 09/13/2018 23:59:59 CLS Outpatient GET BOOGIE MD [facility] RAD H/O STONES,LT ORCHIALGIA [id number] 09/06/2018 08:37:00 09/06/2018 23:59:59 CLS Preadmit GET BOOGIE MD [facility] RAD H/O STONES,LT ORCHIALGIA [id number] 01/11/2018 07:49:00 01/11/2018 23:59:59 CLS Outpatient ROBBY MOTT APRN [facility] RAD ACUTE INTRACTABLE HEADACHE [id number] 01/08/2018 07:34:00 01/08/2018 23:59:59 CLS Outpatient SHARLENE PACHECO, VARINDER R [facility] CARD RAPID HEARTBEAT [id number] 01/08/2018 10:14:00 01/08/2018 11:38:00 DIS Emergency EDWIN LITTLE MD [facility] ER DIZZY-NUMB [id number] 11/08/2017 09:40:00 11/08/2017 15:45:00 DIS Outpatient NOMAN LOVE DO [facility] BILIARY DYSKENSIA [id number] 11/06/2017 07:50:00 11/06/2017 14:28:00 DIS Outpatient NOMAN LOVE DO [facility] PREOP LAP MARIA ELENA [id number] 11/02/2017 06:34:00 11/02/2017 23:59:59 CLS Outpatient LOVE NOMAN PA [facility] CARD ABD PAIN [id number] 10/19/2017 07:09:00 10/19/2017 23:59:59 CLS Outpatient LOVE NOMAN PA [facility] RAD ABD PAIN [id number] 09/28/2017 08:07:00 09/28/2017 10:20:00 DIS Outpatient LOVE NOMAN PA [facility] ENDO LEFT UPPER QUAD PAIN/HEMITAEMASIS [id number] 09/24/2017 11:30:00 09/24/2017 12:11:00 DIS Outpatient LOVE NOMAN PA [facility] PREOP EGD [id number] 12/12/2016 13:31:00 12/12/2016 23:59:59 CLS Outpatient JOSE FRANCISCO MD [facility] RAD SUPERIOR GLENOID LABRUM LESION OF RT SHOULDER [id number] 10/02/2016 10:17:00 10/02/2016 12:30:00 DIS Outpatient ERICK WINCHESTER MD [facility] ENDO EPIGASTRIC PAIN [id number] 09/28/2016 05:37:00 09/28/2016 14:27:00 DIS Outpatient ERICK WINCHESTER MD [facility] PREOP EGD [id number] 08/14/2016 17:42:00 08/14/2016 19:24:00 DIS Emergency RICHARD PACHECO, JAMIA Malcolm [facility] ER ABD PAIN [id number] 07/12/2016 14:21:00 08/09/2016 09:30:00 DIS Outpatient JOSE FRANCISCO MD [facility] REHAB R LABRUM REPAIR [id number] 07/19/2016 11:23:00 07/19/2016 23:59:59 CLS Outpatient JOSE FRANCISCO MD [facility] RAD SUPERIOR GLENOID LABRUM LESION OF LEFT SHOULDER [id number] 12/01/2015 12:44:00 12/01/2015 23:59:59 CLS Outpatient NAYAN ROSE DOUGH RAISER [facility] RAD SUPERIOR GLENOID LABRUM LESION OF RT SHOULDER [id number] 08/22/2015 16:45:00 08/22/2015 18:53:00 DIS Emergency HEIDI DALEY [facility] ER L FOOT INJ [id number] 07/28/2015 12:13:00 07/28/2015 14:00:00 DIS Emergency RAZ STORY APRN [facility] ER ABD PAIN [id number] 12/31/2014 10:26:00 12/31/2014 23:59:59 CLS Outpatient NAYAN ROSEP [facility] RAD LABREAL TEAR OF SHOULDER [id number] 12/30/2014 17:25:00 12/30/2014 23:59:59 CLS Outpatient NAYAN ROSEP [facility] RAD ROTATOR CUFF SYNDROME [id number] 09/13/2014 03:03:00 09/13/2014 04:30:00 DIS Emergency REBA LEO DO [facility] ER L EYE PAIN,REDUCED VISION [id number] 12/18/2017 14:20:00 Document Registration [id number] 07/06/2014 20:45:00 Document Registration [id number] 08/23/2012 09:58:00 Document Registration [id number] 08/22/2012 17:27:00 Document Registration [id number] 11/06/2010 21:40:00 Document Registration
== END 2018-12-02 17:39 | disposition home or self-care (01) ==
LOC: EDUNIT# 16:09 → ER 16:10
DX: S30.22XA Contusion of scrotum and testes, initial encounter (principal); N43.2 Other hydrocele; I86.1 Scrotal varices; K21.9 Gastro-esophageal reflux disease without esophagitis; F32.9 Major depressive disorder, single episode, unspecified; F43.10 Post-traumatic stress disorder, unspecified; F41.9 Anxiety disorder, unspecified; F12.10 Cannabis abuse, uncomplicated; Z88.8 Allergy status to other drugs, medicaments and biological substances; V92.09XA Drowning and submersion due to fall off unspecified watercraft, initial encounter; Y92.828 Other wilderness area as the place of occurrence of the external cause
CPT/HCPCS: 76870; 96372

== ENCOUNTER 2022-01-17 21:22 | Emergency (ER) | payer SELFPAY ==
[~2022-01-17 21:22] MED LIST changes: -HYDR-3812 PO; -TRAM50TA2 PO; +TRM50T PO
== END 2022-01-17 21:44 | disposition left against medical advice (07) ==
LOC: EDUNIT# 21:22 → ER 21:24
DX: R06.02 Shortness of breath (principal)